=== PATIENT | male | born 1975 ===

== ENCOUNTER 2024-08-14 17:31 | Outpatient (CLI) | payer OTHER, BC, SELFPAY ==
--- NOTE | 2024-08-14 17:49 | DI.RAD_ITS ---
Exam(s) XR THUMB LT EXAM: XR THUMB LT EXAM DATE/TIME: CLINICAL HISTORY: evaluate pathology M79.645. TECHNIQUE: 2D digital imaging was performed of the left finger. Views were obtained. PA/AP, obliq ue, and lateral views were obtained. COMPARISON: None. FINDINGS: BONES: No acute fracture is present. No bony destructive lesion is seen. JOINTS: No dislocation is present. SOFT TISSUE: There is soft tissue swelling around the thumb. No radiopaque foreign body is identifie d. IMPRESSION: No evidence of acute fracture or dislocation. DATA REPOSITORY: RADIATION DOSE DELIVERED:
--- NOTE | 2024-08-14 18:05 | DI.VRAD_ITS ---
PROCEDURE INFORMATION: Exam: XR Left Finger(s) Exam date and time: 08/14/2024 5:45 PM Age: 49 years old Clinical indication: Other: Evaluate pathology m79.645 TECHNIQUE: Imaging protocol: Radiologic exam of the left fingers. Views: Minimum 2 views. COMPARISON: No relevant prior studies available. FINDINGS: Bones/joints: No acute fracture or subluxation. Soft tissues: Digital soft tissue swelling. IMPRESSION: No acute bony pathology. Dictated and Authenticated by: Florida Burkett MD. Ordering:AMY Boone MD
== END 2024-08-14 17:51 ==
PROVIDERS: PCP Nurse Practitioner Family; Visit Provider Physician Assistant Medical
DX: M79.645 Pain in left finger(s) (principal)
CPT/HCPCS: 73140